=== PATIENT | male | born 1930 | race Caucasian/White ===

== ENCOUNTER 2019-07-04 12:23 | Inpatient (IN) | payer OTHER ==
[~2019-07-04] VITALS: Ht 167.6 cm; Wt 66.0 kg
[2019-07-04 12:25] VITALS: Ht 167.6 cm; Wt 66.0 kg
[2019-07-04 12:54] LABS: BASOPHIL % 0.4 % (0-2); PLATELET COUNT 224 x10^3mcL (130-400)
[2019-07-04 12:55] LABS: RED CELL DISTRIBUTION WIDTH 15.3 % (11.5-14.5)
[2019-07-04 13:51] LABS: ALBUMIN 3.8 g/dL (3.4-5.0); ALKALINE PHOSPHATASE 129 U/L (46-116); ALT/SGPT 26 U/L (16-63); AST/SGOT 25 U/L (15-37); BILIRUBIN TOTAL 0.6 mg/dL (0.20-1.00); CALCIUM 9.5 mg/dL (8.5-10.1); CARBON DIOXIDE 25.7 mmol/L (21-32); CHLORIDE SERUM 102 mmol/L (98-107); GLUCOSE SERUM 112 mg/dL (74-106); POTASSIUM SERUM 4.4 mmol/L (3.5-5.1); SODIUM SERUM 143 mmol/L (136-145)
[2019-07-04 13:56] LABS: CREATININE SERUM 6.9 mg/dL (0.7-1.3); TOTAL PROTEIN, SERUM 8.3 g/dL (6.4-8.2)
[2019-07-04] MEDS ORDERED: ZESTRIL40 MG (14:23)
[2019-07-04] MEDS ORDERED: COUMADIN2 MG (14:23)
[2019-07-04] MEDS ORDERED: GLUCOTROL5 MG (14:24)
[2019-07-04] MEDS ORDERED: LOVASTATIN20 MG PO (14:24)
[2019-07-04] MEDS ORDERED: DIG125 (14:24)
[2019-07-04] MEDS ORDERED: NOR10 (14:25)
[2019-07-04] MEDS ORDERED: ALPHAGAN P5 M1 (14:25)
[2019-07-04 16:34] VITALS: BP 172/80
[2019-07-04 18:00] VITALS: BP 138/54
[2019-07-04 19:30] VITALS: BP 149/55
[2019-07-04 21:11] VITALS: BP 149/55
[2019-07-05 06:03] VITALS: BP 109/55
[2019-07-05 06:23] LABS: BASOPHIL % 0.3 % (0-2); PLATELET COUNT 223 x10^3mcL (130-400)
[2019-07-05 06:57] LABS: CALCIUM 9.6 mg/dL (8.5-10.1); CARBON DIOXIDE 32.5 mmol/L (21-32); CHLORIDE SERUM 100 mmol/L (98-107); GLUCOSE SERUM 82 mg/dL (74-106); POTASSIUM SERUM 3.9 mmol/L (3.5-5.1); SODIUM SERUM 141 mmol/L (136-145)
[2019-07-05 07:09] LABS: CREATININE SERUM 5.2 mg/dL (0.7-1.3)
[2019-07-05 09:48] VITALS: BP 143/58
[2019-07-05 12:26] VITALS: BP 98/53
[2019-07-05 18:47] VITALS: BP 125/44
[2019-07-05 19:53] VITALS: BP 146/55
[2019-07-06 05:28] VITALS: BP 130/58
[2019-07-06 06:53] LABS: CALCIUM 9.3 mg/dL (8.5-10.1); CARBON DIOXIDE 26.9 mmol/L (21-32); CHLORIDE SERUM 99 mmol/L (98-107); GLUCOSE SERUM 108 mg/dL (74-106); POTASSIUM SERUM 4.2 mmol/L (3.5-5.1); SODIUM SERUM 139 mmol/L (136-145)
[2019-07-06 07:19] LABS: CREATININE SERUM 6.5 mg/dL (0.7-1.3)
[2019-07-06 09:05] VITALS: BP 97/55
[2019-07-06 13:21] VITALS: BP 133/55
[2019-07-06 16:56] VITALS: BP 158/58
[2019-07-06 19:43] VITALS: BP 138/51
[2019-07-07 05:29] VITALS: BP 92/59
[2019-07-07 06:40] LABS: BASOPHIL % 0.4 % (0-2); PLATELET COUNT 239 x10^3mcL (130-400)
[2019-07-07 06:45] LABS: RED CELL DISTRIBUTION WIDTH 14.9 % (11.5-14.5)
[2019-07-07 07:26] LABS: CALCIUM 9.5 mg/dL (8.5-10.1); CARBON DIOXIDE 29.7 mmol/L (21-32); CHLORIDE SERUM 102 mmol/L (98-107); GLUCOSE SERUM 159 mg/dL (74-106); POTASSIUM SERUM 3.9 mmol/L (3.5-5.1); SODIUM SERUM 142 mmol/L (136-145)
[2019-07-07 07:28] LABS: CREATININE SERUM 4.7 mg/dL (0.7-1.3)
[2019-07-07 08:32] VITALS: BP 145/59
[2019-07-07 11:48] VITALS: BP 143/50
[2019-07-07 12:00] VITALS: BP 143/50
== END 2019-07-07 13:04 | disposition home or self-care (01) | DRG 291 ==
LOC: ED 12:23 → DU 15:13
PROVIDERS: Internal Medicine; ADMIT Internal Medicine Pulmonary Disease
DX: I13.2 Hypertensive heart and chronic kidney disease with heart failure and with stage 5 chronic kidney disease, or end stage renal disease (principal); N18.6 End stage renal disease; I50.43 Acute on chronic combined systolic (congestive) and diastolic (congestive) heart failure; I48.20 Chronic atrial fibrillation, unspecified; E11.22 Type 2 diabetes mellitus with diabetic chronic kidney disease; E78.5 Hyperlipidemia, unspecified; N40.0 Benign prostatic hyperplasia without lower urinary tract symptoms; Z99.2 Dependence on renal dialysis; Z68.22 Body mass index [BMI] 22.0-22.9, adult; Z87.891 Personal history of nicotine dependence; Z79.01 Long term (current) use of anticoagulants; Z85.820 Personal history of malignant melanoma of skin; Z79.84 Long term (current) use of oral hypoglycemic drugs
CPT/HCPCS: 36600; 82962; 83880; 94150; 97112-GP; G0378; J1940; J7030; Q0092

== ENCOUNTER 2019-07-18 08:20 | Inpatient (IN) | payer OTHER ==
[~2019-07-18] VITALS: Ht 175.3 cm; Wt 64.4 kg
[~2019-07-18 08:20] MED LIST: ALPHAGAN P5 M1; COUMADIN2 MG; DIG125; GLUCOTROL5 MG; LOVASTATIN20 MG PO; NOR10; ZESTRIL40 MG
[2019-07-18 08:31] VITALS: Ht 175.3 cm; Wt 64.4 kg
--- NOTE | 2019-07-18 08:39 | NUR ---
BROUGHT IN BY AMBULANCE AWAKE ALERT ,STATED SINCE LAST NIGHT STARTED TO HAVE SOB ,WAS SEEN HERE 2 WEEKS AGO AND WAS ADMITTED, CONSERVATION SCIENCE OFFICER IN CONTROLLED AF WITH VENTRICULAR RESPONSE IN 70S
[2019-07-18 09:06] LABS: UA SPECIFIC GRAVITY 1.015 (1.005-1.035); microscopic required? YES; urine erythrocyte TRACE (NEGATIVE)
[2019-07-18 09:08] LABS: BASOPHIL % 0.3 % (0-2); PLATELET COUNT 191 x10^3mcL (130-400)
[2019-07-18 09:18] LABS: RED CELL DISTRIBUTION WIDTH 16.1 % (11.5-14.5)
--- NOTE | 2019-07-18 09:30 | NUR ---
REMAINS AWAKE ALERT, HARD OF HEARING,IV IN PROGRESS,CARDIAC CONTROLLED AF.
[2019-07-18 09:34] LABS: ALBUMIN 3.8 g/dL (3.4-5.0); ALKALINE PHOSPHATASE 128 U/L (46-116); ALT/SGPT 26 U/L (16-63); AST/SGOT 20 U/L (15-37); BILIRUBIN TOTAL 0.7 mg/dL (0.20-1.00); CALCIUM 9.4 mg/dL (8.5-10.1); CARBON DIOXIDE 30.5 mmol/L (21-32); CHLORIDE SERUM 101 mmol/L (98-107); GLUCOSE SERUM 79 mg/dL (74-106); HDL CHOLESTEROL 38 mg/dL (40-60); LIPASE 269 IU/L (73-393); POTASSIUM SERUM 3.7 mmol/L (3.5-5.1); SODIUM SERUM 142 mmol/L (136-145); T4(THYROXINE) 10.8 ug/dL (4.7-13.3); TOTAL PROTEIN, SERUM 8.1 g/dL (6.4-8.2)
[2019-07-18 09:36] LABS: CHOLESTEROL 114 mg/dL (<200); CREATININE SERUM 6.9 mg/dL (0.7-1.3)
[2019-07-18] MEDS ORDERED: HYDRALAZINE PO (09:38)
--- NOTE | 2019-07-18 10:00 | NUR ---
FEELS HUNGRY JUICE AND SANDWICH PROVIDED TOLERATED ,
--- NOTE | 2019-07-18 11:44 | NUR ---
REPORT GIVEN TO MIRACLE
[2019-07-18 12:08] LABS: AMPHETAMINE QUAL UR NONE DETECTED (See below)
--- NOTE | 2019-07-18 12:17 | NUR ---
REC PT VIA GURNEY FROM E.R. AA/O X4. BREATHING EVEN AND UNLABORED N RA 2L NC STATING 98 %. TELE 1 SHOWING AFIB, HR 75, DENIES ANY CP OR PRESSURE, CURRENTLY HAS NITRO PASTE APPLIED. BOWEL SOUNDS ACTIVE IN ALL FOUR QUADS, PER PT LAST BM WAS THIS AM, FORMED. SKIN INTACT AND WARM TO TOUCH NO APPARENT ISSUES. PULSE PRESENT, EDEMA NOTED BLE +2. PT IS HD, LAST HD WAS THURSDAY TOTAL OF 1L OUT. PT STATED GETS HD ON MWF/ AV SHUNT NOTED TO LUE. VOIDS USING URINAL, AMB WITH ASSIST/ USES WALKER/CANE. KNOW TO CALL FOR ASSIST. IV TO THE RAC INTACT AND PATENT/ HEPLOCKED. CALL LIGHT IN REACH. BED IN LOW POSITION. WILL CONTINUE TO MONITOR.
[2019-07-18 12:25] VITALS: BP 143/54
--- NOTE | 2019-07-18 14:57 | NUR ---
PT TAKEN DOWN TO HAVE CT CHEST DONE WITH CONTRAST. WILL CONTINUE TO MONITOR WHEN PT RETURNS TO FLOOR.
[2019-07-18 17:22] VITALS: BP 151/56
--- NOTE | 2019-07-18 17:26 | NUR ---
PT REFUSE TO TAKE HIS COUMADIN 2MG, STATING HE TOOK THIS DOSE THIS MORNING. DR. GILBERT MADE AWARE.
--- NOTE | 2019-07-18 18:18 | NUR ---
PT IS SITTING UP IN BED HAVING DINNER, CURRENTLY HAVING HD AT THIS TIME/TOLERATING WELL. FAMILY AT BEDSIDE. IV TO THE RAC INTACT AND PATENT/ NO REDNESS OR SWELLING NOTE/ HEPLOCKED. CALL LIGHT IN REACH/BED LOW POSITION. WILL ENDORSE TO INCOMING RN.
[2019-07-18 20:28] VITALS: BP 144/50
--- NOTE | 2019-07-18 20:43 | NUR ---
PT CURRENTLY RESTING IN BED, NO ACUTE DISTRESS. A/O X4. TELE #1 SHOWING AFIB, DENIES CHEST PAIN. PULSES PALPABLE IN ALL EXTREMITIES, BLE TRACE EDEMA NOTED. LUNG SOUNDS DIMINISHED IN BILATERAL BASES, DENIES SOB. O2 VIA NC AT 2L. BOWEL SOUNDS ACTIVE, LAST BM 07/18/19. VOIDING WELL. HD COMPLETED 189907/18/19, 2.8L OUT. AMBULATORY. SKIN INTACT. IV PATENT AND INTACT. BED IN LOWEST POSITION, SIDE RAILS UP X2, CALL LIGHT WITHIN REACH. WILL CONTINUE TO MONITOR.
--- NOTE | 2019-07-19 01:27 | NUR ---
PT CURRENTLY RESTING IN BED, NO ACUTE DISTRESS. WILL CONTINUE TO MONITOR.
[2019-07-19 05:54] VITALS: BP 151/57
--- NOTE | 2019-07-19 06:36 | NUR ---
PT SLEPT PERIODICALLY THROUGHOUT NIGHT, NO ACUTE DISTRESS. ALL NEEDS MET AND ATTENDED TO. NO SIGNIFICANT CHANGES. IV PATENT AND INTACT. BED IN LOWEST POSITION, SIDE RAILS UP X2, CALL LIGHT WITHIN REACH. WILL ENDORSE CARE TO ONCOMING NURSE.
[2019-07-19 07:40] LABS: IRON 43 ug/dL (65-170); TOTAL IRON BINDING CAPACITY 272 ug/dL (250-450)
--- NOTE | 2019-07-19 07:46 | NUR ---
PT RECIEVED FROM NIGHT NURSE SITTING ON A CHAIR. AO X 4. ON TELE #1 WITH AFIB RHYTHM. NO COMPLAINT OF PAIN AT THIS TIME. IN NO RESPIRATORY OR ACUTE DISTRESS. LUMG SOUNDS DIMINISHED ON 2 L NASAL CANNULA. BREATHING IS EVEN AND UNLABORED. IV TO R AC IS INTACT AND PATENT SALINE LOCK. CALL LIGHT WITHIN REACH. WILL CONTINUE TO MONITOR.
[2019-07-19 08:51] VITALS: BP 156/55
--- NOTE | 2019-07-19 09:24 | NUR ---
PATIENT'S PLAN OF CARE WAS DISCUSSED AND REVIEWED WITH PRINTED CIRCUIT BOARD ASSEMBLY REPAIRER: SN KING 07/19/19 AT 0730. WILL CONTINUE TO REVIEW WORK COMPLETED.
[2019-07-19 11:45] LABS: BASOPHIL % 0.2 % (0-2); PLATELET COUNT 183 x10^3mcL (130-400)
[2019-07-19 11:55] LABS: RED CELL DISTRIBUTION WIDTH 15.6 % (11.5-14.5)
[2019-07-19 12:01] LABS: CARBON DIOXIDE 29.1 mmol/L (21-32); CHLORIDE SERUM 102 mmol/L (98-107); GLUCOSE SERUM 110 mg/dL (74-106); POTASSIUM SERUM 4.2 mmol/L (3.5-5.1); SODIUM SERUM 142 mmol/L (136-145)
[2019-07-19 12:06] LABS: CREATININE SERUM 4.6 mg/dL (0.7-1.3)
--- NOTE | 2019-07-19 12:08 | NUR ---
LAB CALLED BUN/CREAT /.6 DR. GILBERT MADE AWARE. WILL CONTINUE TO MONITOR.
[2019-07-19 12:21] VITALS: BP 143/50
--- NOTE | 2019-07-19 15:15 | NUR ---
PT LAYING IN BED RESTING, CURRENTLY HAVING HD/FAMILY AT BEDSIDE.
[2019-07-19 16:43] VITALS: BP 133/59
--- NOTE | 2019-07-19 17:09 | NUR ---
HD COMPLETED TOTAL OUTPUT 2L. PER HD MARCIE ZAYAS PT WILL BE GETTING HD TOMORROW AM AROUND 8AM. WILL CONTINUE TO MONTITOR.
--- NOTE | 2019-07-19 19:08 | NUR ---
PT RESTING IN BED. NO COMPLAINT OF PAIN OR CHEST PAIN AT THIS TIME. IN NO ACUTE DISTRESS BREATHING EVEN AND UNLABORED. COMPLAINS OF A "DRY COUGH". CALL LIGHT WITHIN REACH. WILL ENDORSE TO UNDERWEAR CUTTER NURSE.
--- NOTE | 2019-07-19 19:10 | NUR ---
RECIEVED PT FROM PREVIOUS SHIFT NURSE. PT AOX4. DENIES LIZ/DIZZINESS. DENIES SOB/DIFFCULTY BREATHING ON 2L NC. IV ON R AC INTACT AND PATENT. BED IN LOWEST POSITION AND CALL LIGHT WITHIN REACH. WILL CONTINUE TO MONITOR.
--- NOTE | 2019-07-19 19:30 | NUR ---
I HAVE REVIEWED THE DATA COLLECTION BY RULA (NAME):LIZA KING ENTERED ON (DATE/TIME):07/19/19 I CONCUR WITH THE DATA AND ANY EXCEPTIONS OR COMMENTS ARE LISTED BELOW:
[2019-07-19 21:01] VITALS: BP 154/57
--- NOTE | 2019-07-20 03:00 | NUR ---
PT RESTING IN BED. RR EVEN AND UNLABORED. IN NO ACUTE DISTRESS. CALL LIGHT WITHIN REACH. BED IN LOWEST POSITION. WILL CONTINUE TO MONITOR.
[2019-07-20 06:15] VITALS: BP 136/50
[2019-07-20 06:48] LABS: CALCIUM 9.5 mg/dL (8.5-10.1); CARBON DIOXIDE 25.5 mmol/L (21-32); CHLORIDE SERUM 102 mmol/L (98-107); GLUCOSE SERUM 87 mg/dL (74-106); PHOSPHOROUS 4.8 mg/dL (2.5-4.9); POTASSIUM SERUM 4.3 mmol/L (3.5-5.1); SODIUM SERUM 139 mmol/L (136-145)
[2019-07-20 06:59] LABS: CREATININE SERUM 5.9 mg/dL (0.7-1.3)
[2019-07-20 07:09] LABS: BASOPHIL % 0.5 % (0-2); PLATELET COUNT 183 x10^3mcL (130-400)
[2019-07-20 07:10] LABS: RED CELL DISTRIBUTION WIDTH 15.6 % (11.5-14.5)
--- NOTE | 2019-07-20 07:30 | NUR ---
PATIENT IS A&OX4. [place] ON BOTH EARS W/ RIGHT HEARING AID PRESENT. TELE #1 A-FIB, DENIES CHEST PAIN. PERIPHERAL PULSES PALPABLE W/ NO SIGNS OF EDEMA IN BLE. LUNG SOUNDS DIMINISHED BILATERALLY, ON 2L NC, O2 SAT 95%. NORMOACTIVE BSX4, ROUND AND SOFT TO PALPATION. VOIDS, HEMODIALYSIS PATIENT W/ COBY AV SHUNT. PATIENT NOTIFIED OF HEMODIALYSIS TO HAPPEN TODAY. NO WEAKNESS. AMBUALTORY. SKIN IS INTACT. DENIES PAIN, DISCOMFORT, RO SOB AT THIS TIME. RAC IV SITE IS CDI. WILL CONTINUE TO MONITOR.
[2019-07-20 08:48] VITALS: BP 116/41
[2019-07-20 12:18] VITALS: BP 111/44
--- NOTE | 2019-07-20 12:20 | NUR ---
PATIENT FINISHED HEMODIALYSIS. STONEWORK SUPERVISOR REMOVED 2L. PATIENT VSS. WILL CONTINUE TO MONITOR.
--- NOTE | 2019-07-20 12:45 | NUR ---
DR. GILBERT VISITED PATIENT. INQUIRED RN IF PATIENT IS OKAY W/OUT O2 NASAL CANNULA. RN REPORTED THAT PATIENT REMAINS IN 93-94% WITHOUT NASAL CANNULA. MD ORDERED TO RECHECK O2 SAT WITHOUT NASAL CANNULA WITHIN 10-15 MINUTES. MD TO ORDER DISCHARGE ORDERS FOR PATIENT TO GO HOME. MD WILL CALL [employer] ABOUT O2. NO FURTHER ORDERS AT THIS TIME.
--- NOTE | 2019-07-20 13:00 | NUR ---
PATIENT O2 SAT CHECKED 15 MINUTES AFTER O2 NASAL CANNULA IS TAKEN OFF OF PATIENT. PATIENT CONTINUES TO REMAIN IN 92-93% ON RA. DENIES SOB AND RESPIRATORY DISTRESS. PATIENT IS CURRENTLY EATING LUNCH WHILE SITTING UP IN THE CHAIR. WILL CONTINUE TO MONITOR FOR SOB.
[2019-07-20 13:02] VITALS: BP 130/50
--- NOTE | 2019-07-20 14:56 | NUR ---
PATIENT HAS RECEIVED DISCHARGE INSTRUCTIONS TO GO HOME. ALL QUESTIONS AND CONCERNS HAVE BEEN ADDRESSED, PT ABLE TO AMBULATE. FAMILY PERSENT. DENIES ANY PAIN OR DISCOMFORT AT THIS TIME. NO SOB NOTED. PATIENT AMBULATED WITH STUDENT AND FAMILY TO LOBBY. IV DC AND CATHETER INTACT. PATIENT TELE DC.
== END 2019-07-20 14:54 | disposition home or self-care (01) | DRG 291 ==
LOC: ED 08:20 → DU 10:09
PROVIDERS: Emergency Medicine; Internal Medicine Nephrology; ADMIT Internal Medicine Pulmonary Disease
PROC: 5A1D70Z Performance of Urinary Filtration, Intermittent, Less than 6 Hours Per Day (ICD-10-PCS; principal; 2019-07-18)
PROC: 5A1D70Z Performance of Urinary Filtration, Intermittent, Less than 6 Hours Per Day (ICD-10-PCS; 2019-07-19)
PROC: 5A1D70Z Performance of Urinary Filtration, Intermittent, Less than 6 Hours Per Day (ICD-10-PCS; 2019-07-20)
DX: I13.2 Hypertensive heart and chronic kidney disease with heart failure and with stage 5 chronic kidney disease, or end stage renal disease (principal); I50.43 Acute on chronic combined systolic (congestive) and diastolic (congestive) heart failure; N18.6 End stage renal disease; I48.20 Chronic atrial fibrillation, unspecified; E11.22 Type 2 diabetes mellitus with diabetic chronic kidney disease; E11.65 Type 2 diabetes mellitus with hyperglycemia; I27.20 Pulmonary hypertension, unspecified; E87.70 Fluid overload, unspecified; E78.5 Hyperlipidemia, unspecified; N40.0 Benign prostatic hyperplasia without lower urinary tract symptoms; Z99.2 Dependence on renal dialysis; Z68.20 Body mass index [BMI] 20.0-20.9, adult; Z79.01 Long term (current) use of anticoagulants; Z85.820 Personal history of malignant melanoma of skin; Z79.84 Long term (current) use of oral hypoglycemic drugs
CPT/HCPCS: 36600; 82962; 83880; G0378; J2405; J2543; J7030; Q0092; Q9967

== ENCOUNTER 2019-07-27 20:24 | Emergency (ER) | payer OTHER ==
[~2019-07-27] VITALS: Ht 167.6 cm; Wt 65.3 kg
[~2019-07-27 20:24] MED LIST changes: +HYDRALAZINE PO
[2019-07-27 22:16] LABS: BASOPHIL % 0.6 % (0-2); PLATELET COUNT 205 x10^3mcL (130-400); RED CELL DISTRIBUTION WIDTH 15.9 % (11.5-14.5)
[2019-07-27 22:22] LABS: ALBUMIN 3.8 g/dL (3.4-5.0); ALKALINE PHOSPHATASE 129 U/L (46-116); ALT/SGPT 41 U/L (16-63); AST/SGOT 28 U/L (15-37); CALCIUM 9.1 mg/dL (8.5-10.1); CHLORIDE SERUM 100 mmol/L (98-107); GLUCOSE SERUM 117 mg/dL (74-106); POTASSIUM SERUM 4.2 mmol/L (3.5-5.1); SODIUM SERUM 141 mmol/L (136-145); TOTAL PROTEIN, SERUM 8.1 g/dL (6.4-8.2)
[2019-07-27 22:25] LABS: CREATININE SERUM 4.2 mg/dL (0.7-1.3)
[2019-07-27 22:45] VITALS: BP 147/46
== END 2019-07-27 22:45 | disposition home or self-care (01) ==
LOC: ED 20:24
PROVIDERS: Emergency Medicine
DX: E11.22 Type 2 diabetes mellitus with diabetic chronic kidney disease (principal); N18.6 End stage renal disease; R06.02 Shortness of breath; I50.9 Heart failure, unspecified; Z99.2 Dependence on renal dialysis; Z98.890 Other specified postprocedural states
CPT/HCPCS: 36415; 83880; Q0092

== ENCOUNTER 2019-07-29 13:03 | Inpatient (IN) | payer OTHER ==
[~2019-07-29] VITALS: Ht 167.6 cm; Wt 65.3 kg
[2019-07-29 13:15] VITALS: Ht 167.6 cm; Wt 65.3 kg
--- NOTE | 2019-07-29 13:27 | NUR ---
PT BIBA FOR SOB X2 MOS WITH LT SIDED CHEST DISCOMFORT. STS NO CP. PER MEDIC PT SOB RELIEVED WITH O2 2L VIA NC. PT ALSO REPORT NONPRODUCTIVE COUGH. PT AAO4, RESP RATE NOTED 15-16 PER MINUTE. PT ANSWERING APPROPRIATELY. PT SEEN WITH SHUNT TO LUE. PER MEDIC PT WAS SCHEDULED TO BE AT DIALYSIS AT THIS TIME; PITTING EDEMA NOTED TO BLE. PT CONNECTED TO FULL CM. NO DISTRESS AT THIS TIME.
[2019-07-29 14:11] LABS: BASOPHIL % 0.1 % (0-2); PLATELET COUNT 202 x10^3mcL (130-400); RED CELL DISTRIBUTION WIDTH 15.5 % (11.5-14.5)
[2019-07-29 14:26] LABS: ALBUMIN 3.7 g/dL (3.4-5.0); ALKALINE PHOSPHATASE 128 U/L (46-116); ALT/SGPT 40 U/L (16-63); AST/SGOT 23 U/L (15-37); BILIRUBIN TOTAL 0.51 mg/dL (0.20-1.00); C REACTIVE PROTEIN 1.3 mg/dL (<=0.9); CALCIUM 9.2 mg/dL (8.5-10.1); CARBON DIOXIDE 29.6 mmol/L (21-32); CHLORIDE SERUM 100 mmol/L (98-107); GLUCOSE SERUM 182 mg/dL (74-106); POTASSIUM SERUM 4.1 mmol/L (3.5-5.1); SODIUM SERUM 141 mmol/L (136-145); TOTAL PROTEIN, SERUM 7.8 g/dL (6.4-8.2)
--- NOTE | 2019-07-29 14:26 | NUR ---
CALLED TO PT RM. PT STS HE IS HAVING DIFFICULTY BREATHING. PT PUT ON 2L O2 VIA NC. PT REPORTS ITS EASIER FOR HIM TO BREATH AFTER BEING PUT ON 02.
--- NOTE | 2019-07-29 14:31 | NUR ---
PT GIVEN WATER PER REQUEST.
[2019-07-29 14:34] LABS: CREATININE SERUM 6.5 mg/dL (0.7-1.3)
[2019-07-29 14:44] LABS: T3 TOTAL 0.91 ng/mL
--- NOTE | 2019-07-29 14:56 | NUR ---
CALLED TO PT RM. PT REQUESTED TO SIT UPRIGHT ON GURNEY AND REQUESTED A URINAL. PT GIVEN URINAL TO USE.
[2019-07-29 14:58] LABS: ERYTHROCYTE SED RATE 77 mm/hr (0-20)
[2019-07-29 15:16] LABS: FREE T4 1.27 ng/dL (0.76-1.46); FREE THYROXINE INDEX 3.8 ug/dL (1.4-4.5); T4(THYROXINE) 10.8 ug/dL (4.7-13.3)
[2019-07-29 15:17] LABS: CK-MB 2.7 ng/mL (0-3.6)
--- NOTE | 2019-07-29 15:48 | NUR ---
PT REQUESTING FOOD. PER DR.ORNELAS TORRES TO GIVE PT SANDWICH. PT GIVEN SANDWICH AND WATER.
[2019-07-29] MEDS ORDERED: COUMADIN2 MG PO (16:23)
[2019-07-29] MEDS ORDERED: ZESTRIL5 MG PO (16:23)
[2019-07-29] MEDS ORDERED: LOVASTATIN10 MG PO (16:23)
[2019-07-29] MEDS ORDERED: DIGOXIN0.125 M1 PO (16:23)
[2019-07-29] MEDS ORDERED: GLIPIZIDE5 M2 PO (16:23)
[2019-07-29] MEDS ORDERED: AMLODIPINE BES2.5 M1 PO (16:24)
--- NOTE | 2019-07-29 16:38 | NUR ---
REPORT GIVEN TO MARCIE CONKLIN ON TELE UNIT TO ASSUEM CARE OF PT. ALL QUESTIONS ANSWERED AND ADDRESSED.
--- NOTE | 2019-07-29 16:51 | NUR ---
RECEIVED REPORT ABOUT PATIENT AND HE IS WITH SOB AND CARDIOMEGALY AND IS ON O2 ATT HIS TIME. NO ORDER MEDICATIONS RECIEVED [facility] HAS AN ORDER FOR DIALYSIS TODAY. PATIENT HAS BEEN ON 02 AT 2 LITERS AND HAS CARDIOMEGALY ON THE CHESTL XRAY. 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 HE HAS COUGH FOR A MONTH. AWAITING ARRIVAL ON THE FLOOR AND WILL CONTINUE TO MONITOR.
--- NOTE | 2019-07-29 17:14 | NUR ---
CLARENCE RECEIVED FROM ER ALERT AND ORIENTED AND STATES WAS HERE JUST LAST WEEK WITH THE SAME ISSUES. FAMILY FEELS HE NEEDS 02 AT HOME. FROM [place] AND HAS BEEN AT THE HOSPITAL TWICE BEFORE AND THE FIRST TIME JUST BEFORE THANKS GIVING AND THEN A WEEK AGO. HE HAS BEEN SCHEDULED FOR DIALYSIS TODAY BUT WAS TOO SOB AND FELT FAINT. LUNGS ARE DIMINISHED AND RIGHT BASILAR ATELECTAISS NOTED AND HAS EDEMA OF TRACE TO ONE PLUS TO THE LOWER EXTREMITIES. HE HAS A DISTENDED AND MODERATELY FIRM ABDOMEN. HIS FAMILY AT BEDSIDE AND SUPPORTIVEIWTH CARE.CLARENCE HAS BEEN PLACED ON MONITORS AND PATIENTHAS 02 AT 2 LITERS AT THIS TIME. WILL CONTINUE TO MONITOR AND DIALYSIS NURSE HERE UN THE HOSPITAL AND ASKED TO CONTACT THE [facility] FOR [facility] TO BE PREFORMED IN A TIMELY MANNER.
[2019-07-29 17:23] VITALS: BP 153/56
--- NOTE | 2019-07-29 17:31 | NUR ---
SPOKE WITH MANRIQUE AND PATIENT IS TO HAVE DIALYSIS TONIGHT AT 10-112 OM WILL HAVE DIALYSIS AT 10/12 TONIGHT. WILL ADVISE THE PATIENT AND PATIENT WILL BE HAVING DIALYSIS TONIGHT.
--- NOTE | 2019-07-29 17:39 | NUR ---
RECEIVED PT FROM ER, PT ADMIT FOR SOB, CHRONIC RENAL FAILURE, PT IS A/O X4, VERBAL RESPONSIVE, [place] BOTH EARS, PT IS ON 2L/MIN O2 VIA NC. LUNG SOUND CLEAR BILATERAL, C/O OCCASIONALLY DRY COUGH, DENY SOB AT THIS TIME, PT IS ON TELE 15, A.FIB, DENY ANY CHEST PAIN OR DISCOMFORT, PT IS ON COUMADIN. BOWEL SOUND PRESENT ALL 4 QUADRANTS, NO DISTENTION, NO TENDER. PEDAL PULSE PRESENT BOTH FEET, TRACE EDEMA BLE. AV SHUNT AT LEFT UPPER ARM, B/T PRESENT. IV AT RIGHT AC, ON LEAKING, NO INFILTRATION. ALL ADLS ASSIST, ALL NEED MET, CALL LIGHT IN REACH.
--- NOTE | 2019-07-29 18:57 | NUR ---
CALLED DR GILBERT AND ORDER TO CONTINUE HOME MEDICATIONS RECIEVED. ANKIT HAS BEEN ON COUMADIN AND REFUSED THE HEPARIN. ENTERED ALL BEUT A MEDICATION NO FAMILUR AND WILL GETTHE NAME AND DOSING FROM THE FAMIKLY AND MAY NEED TO BRING IN TO GIVE. PATIENT HAS HIS TWOEYES DROPS WITH HIM TO TAKE HERE.
--- NOTE | 2019-07-29 20:08 | NUR ---
Awake and verbally responsive. No respiratory distress noted on room air. Denies pain. Denies n/v. Up and sitting at the edge of the bed. Watching tv. Wears bilateral hearing aids. Will cont.to monitor. Call light within reach. Safety maintained.
[2019-07-29 20:31] VITALS: BP 143/50
--- NOTE | 2019-07-29 22:35 | NUR ---
Hemodialysis in progress.
--- NOTE | 2019-07-30 01:13 | NUR ---
Hemodialysis completed. 1.6L out per HD nurse. Sp=[phone]/55
--- NOTE | 2019-07-30 04:13 | NUR ---
Afebrile. No significant change in condition noted. Denies pain. COBY AV shunt with drsg.intact. (+)bruit/thrill. In no apparent distress.
[2019-07-30 05:28] VITALS: BP 137/45
[2019-07-30 06:03] LABS: BASOPHIL % 0.7 % (0-2); PLATELET COUNT 170 x10^3mcL (130-400)
[2019-07-30 06:23] LABS: RED CELL DISTRIBUTION WIDTH 15.4 % (11.5-14.5)
[2019-07-30 06:44] LABS: ALKALINE PHOSPHATASE 103 U/L (46-116); ALT/SGPT 36 U/L (16-63); AST/SGOT 21 U/L (15-37); BILIRUBIN TOTAL 0.61 mg/dL (0.20-1.00); CALCIUM 8.8 mg/dL (8.5-10.1); CARBON DIOXIDE 31.5 mmol/L (21-32); CHLORIDE SERUM 100 mmol/L (98-107); CREATININE SERUM 3.9 mg/dL (0.7-1.3); GLUCOSE SERUM 75 mg/dL (74-106); PHOSPHOROUS 3.3 mg/dL (2.5-4.9); POTASSIUM SERUM 3.4 mmol/L (3.5-5.1); SODIUM SERUM 141 mmol/L (136-145); TOTAL PROTEIN, SERUM 7.1 g/dL (6.4-8.2)
[2019-07-30 06:56] LABS: ALBUMIN 3.3 g/dL (3.4-5.0)
[2019-07-30 07:06] LABS: IRON 46 ug/dL (65-170)
[2019-07-30 07:15] LABS: TOTAL IRON BINDING CAPACITY 244 ug/dL (250-450)
[2019-07-30 08:46] VITALS: BP 135/49
--- NOTE | 2019-07-30 09:49 | NUR ---
PATIENT IS ON DIALYSIS AGAIN THIS AM AND JUST TO REMOVE THE EXCESS FLUID PER THE NURSE.MATTHEWT HAS BEEN WITH DIMINISHED BREATH SOUND AND NON OXYMISER AND HAS DESATURED OVER NIGHT. PATIENT ENCOURAGE TO DEEP BREATH OFTEN AND HAS NO 02 ATHOME.VITLAS ARE STABLE AND PATIENT IWHT HISTORY OF AFIB AND NON COUMADIN ORDERED. PATEINT AHS VITALS AT THIS TIME AT 98.3, 65, 16. 137/45, 99%. PATIENTAHS SOME ONE PLUS EDEMA TO THE LOWER EXTRMITES AND BOWEL SOUNDS ACTIVE AND SKIN IS WARM AND DRY. PATIENT IS VERY HEARD OF HEARING BUT THE HEARING AIDE CARLISLE NOT SEEM TO HELP HIM HEAR AND STAFF NEED TO EPEAD AND SPEEK LOUDER. HELD HIS MEDICATION TILL POST THE DIALYSIS AND WILL CONTINUE TO MONITOR INDICATED. JOSE RAMON TULIO NOTED LABS OF POTASSIM OF 3.3, BUN AT 25.0 AND THE CREATININE AT 3.9. PATIENT H AHD IS AT 8.6/26, AND THE PATIENTAHS NORMAL WBDS. WILL CONTINUE TO MONITOR INDICATED.
[2019-07-30 13:05] VITALS: BP 143/45
[2019-07-30 17:12] VITALS: BP 131/50
--- NOTE | 2019-07-30 19:25 | NUR ---
RECEIVED PT IN BED AWAKE, ALERT,ORIENTED X4. LUNG SOUNDS DIMINISHED AT THE BASES. ON O2 AT 2L VIA N/C. HE HAS NO C/O PAIN AT THIS TIME. W/ AV SHUNT TO COBY INTACT AND W/ DRESSING CDI. W/ HL TO RTFA INTACT. CALL LIGHT W/IN REACH.
[2019-07-30 20:57] VITALS: BP 129/48
--- NOTE | 2019-07-30 22:29 | NUR ---
PT APPEARS TO BE SLEEPING COMFORATABLY AFTER ATIVAN WAS GIVEN. NO S/S OF RESP. DISTRESS.
--- NOTE | 2019-07-30 23:35 | NUR ---
PT WOKE UP AND WENT OUTOF THE ROOM. PT CONFUSED SAYING " I DON'T KNOW WHERE MY ROOM IS". REORIENTED PT AND HELPED HIM BACK TO BED.
--- NOTE | 2019-07-31 01:55 | NUR ---
PT GOT OUT OF BED AND WENT STRAIGHT TO THE DOOR. PT DISORIENTED. REORIENTED PT AND ADVISED HIM TO STAY IN BED. PT KEPT WARM AND COMFORTABLE.
--- NOTE | 2019-07-31 02:25 | NUR ---
PT GOT OUT OF BED DISORIENTED. REORIENTED PT AND ASSISTED HIM TO THE RESTROOM. HELPED HIM BACK TO BED AND KEPT WARM AND COMFORTABLE.
[2019-07-31 05:11] VITALS: BP 143/58
--- NOTE | 2019-07-31 05:14 | NUR ---
PT SLEPT ON AND OFF GETTING OUT OF BED SEVERAL TIMES DURING THE NIGHT AND DISORIENTED. PT REORIENTED NEEDED. HE HAD NO C/O PAIN. PT REMAINED ON ROOM AIR THROUGHOUT THE NIGHT. NO EPISODE OF SOB. HE IS ABLE TO AMBULATE W/ MINIMAL ASSISTANCE. PT FOR HEMODIALYSIS TODAY. ALL NEEDS ATTENDED TO.
[2019-07-31 06:54] LABS: BASOPHIL % 0.7 % (0-2); PLATELET COUNT 168 x10^3mcL (130-400)
[2019-07-31 06:57] LABS: ALKALINE PHOSPHATASE 93 U/L (46-116); ALT/SGPT 23 U/L (16-63); AST/SGOT 20 U/L (15-37); BILIRUBIN TOTAL 0.56 mg/dL (0.20-1.00); CALCIUM 8.8 mg/dL (8.5-10.1); CARBON DIOXIDE 28.9 mmol/L (21-32); CHLORIDE SERUM 101 mmol/L (98-107); GLUCOSE SERUM 69 mg/dL (74-106); MAGNESIUM 1.9 mg/dL (1.8-2.4); POTASSIUM SERUM 4.1 mmol/L (3.5-5.1); SODIUM SERUM 140 mmol/L (136-145); TOTAL PROTEIN, SERUM 6.7 g/dL (6.4-8.2)
[2019-07-31 07:13] LABS: RED CELL DISTRIBUTION WIDTH 15.6 % (11.5-14.5)
--- NOTE | 2019-07-31 07:25 | NUR ---
RECEIVED PT. IN BED A/A/O X3. NO SOB, NO N/V NOTED. PT. DENIES ANY PAIN AT THIS TIME. IV SITE NOTED TO R FA. AV SHUNT NOTED TO L UPPER ARM. BED IN LOW POS., CALL LIGHT WITHIN REACH. SIDE RAILS UP X3.
[2019-07-31 08:05] LABS: ALBUMIN 3.1 g/dL (3.4-5.0); CREATININE SERUM 5.5 mg/dL (0.7-1.3)
[2019-07-31 08:44] VITALS: BP 132/45
--- NOTE | 2019-07-31 10:05 | NUR ---
HEMODIALYSIS NURSE AT BEDSIDE TO PREPARE PT. FOR HEMODIALYSIS.
[2019-07-31 13:13] VITALS: BP 141/55
--- NOTE | 2019-07-31 14:09 | NUR ---
HEMODIALYSIS OUTPUT = 2 L PER HEMODIALYSIS NURSE.
[2019-07-31] MEDS ORDERED: REVATIO20 M1 PO (15:27)
--- NOTE | 2019-07-31 15:50 | NUR ---
Spoke with Bonita aT [place] and informed her that patient is discharge back today. Per Bonita OK to sent patient back to his apartment today.
--- NOTE | 2019-07-31 16:10 | NUR ---
D/C HOME INSTRUCTIONS GIVEN TO PT. AND PT.'S DAUGHTER (NEFTALI) WHO BOTH VERBALIZED UNDERSTANDING OF INSTRUCTIONS. IV H/L TO R FA REMOVED. TELE. MONITOR #15 REMOVED AND RETURNED TO TELE. MONITOR STATION. COUMADIN EDUCATION GIVEN UPON DISCHARGE.
--- NOTE | 2019-07-31 16:30 | NUR ---
PT. IS BEING DISCHARGED IN STABLE CONDITION. PT. DECLINED TO BE WHEELED OUT IN THE WHEELCHAIR. PT. STATED " I DON'T NEED A WHEELCHAIR. I CAN WALK." ALL BELONGINGS SENT HOME WITH PT. UPON DISCHARGE.
== END 2019-07-31 16:35 | disposition home or self-care (01) | DRG 291 ==
LOC: ED 13:03 → DU 16:10 → EDBEDREQ 16:10 → DU 16:10
PROVIDERS: Internal Medicine Nephrology; Internal Medicine Pulmonary Disease; Specialist; ADMIT Internal Medicine
DX: I13.2 Hypertensive heart and chronic kidney disease with heart failure and with stage 5 chronic kidney disease, or end stage renal disease (principal); J96.01 Acute respiratory failure with hypoxia; N18.6 End stage renal disease; I48.20 Chronic atrial fibrillation, unspecified; I50.30 Unspecified diastolic (congestive) heart failure; E11.22 Type 2 diabetes mellitus with diabetic chronic kidney disease; I27.20 Pulmonary hypertension, unspecified; N40.0 Benign prostatic hyperplasia without lower urinary tract symptoms; Z99.2 Dependence on renal dialysis; Z68.24 Body mass index [BMI] 24.0-24.9, adult; Z79.01 Long term (current) use of anticoagulants; Z85.820 Personal history of malignant melanoma of skin; Z79.84 Long term (current) use of oral hypoglycemic drugs
CPT/HCPCS: 36600; 82962; 83880; 84439; 87804; G0378; J1644; J7030; Q0092

== ENCOUNTER 2020-01-12 16:37 | Emergency (ER) | payer OTHER ==
[~2020-01-12] VITALS: Ht 167.6 cm; Wt 62.1 kg
[~2020-01-12 16:37] MED LIST changes: +AMLODIPINE BES2.5 M1 PO; +COUMADIN2 MG PO; +DIGOXIN0.125 M1 PO; +GLIPIZIDE5 M2 PO; +LOVASTATIN10 MG PO; +REVATIO20 M1 PO; +ZESTRIL5 MG PO
[2020-01-12 16:49] VITALS: Ht 167.6 cm; Wt 62.1 kg
[2020-01-12 17:35] LABS: ALKALINE PHOSPHATASE 176 U/L (46-116); ALT/SGPT 24 U/L (16-63); AST/SGOT 25 U/L (15-37); BILIRUBIN TOTAL 0.6 mg/dL (0.20-1.00); CALCIUM 9.2 mg/dL (8.5-10.1); CARBON DIOXIDE 28.8 mmol/L (21-32); CHLORIDE SERUM 92 mmol/L (98-107); GLUCOSE SERUM 180 mg/dL (74-106); POTASSIUM SERUM 3.7 mmol/L (3.5-5.1); SODIUM SERUM 133 mmol/L (136-145)
[2020-01-12 17:41] LABS: ALBUMIN 3.2 g/dL (3.4-5.0); CREATININE SERUM 6.3 mg/dL (0.7-1.3); TOTAL PROTEIN, SERUM 8.5 g/dL (6.4-8.2)
[2020-01-12 17:42] LABS: PLATELET COUNT 145 x10^3mcL (130-400)
[2020-01-12 17:55] LABS: BAND NEUTROPHIL 2 % (0-10); BASOPHIL 0 % (0-2); MONOCYTE 11 % (0-7); SEGMENTED NEUTROPHILS 77 % (37-75)
[2020-01-12 17:57] LABS: rbc morphology (normal/abnorm) ABNORMAL (NORMAL)
[2020-01-12 21:14] VITALS: BP 145/53
== END 2020-01-12 21:14 | disposition short-term general hospital (02) ==
LOC: ED 16:37
PROVIDERS: Emergency Medicine
DX: S06.5X0A Traumatic subdural hemorrhage without loss of consciousness, initial encounter (principal); D68.9 Coagulation defect, unspecified; I48.91 Unspecified atrial fibrillation; H11.32 Conjunctival hemorrhage, left eye; I50.9 Heart failure, unspecified; E11.9 Type 2 diabetes mellitus without complications; W06.XXXA Fall from bed, initial encounter; Y93.89 Activity, other specified; Y92.89 Other specified places as the place of occurrence of the external cause; Y99.8 Other external cause status
CPT/HCPCS: C9132; J3430